=== PATIENT | female | born 1985 | race Caucasian/White ===

== ENCOUNTER 2024-05-12 12:22 | Emergency (ER) | payer MEDICAID, SELFPAY ==
[2024-05-12 12:38] VITALS: BP 133/63; PULSE 85; RESP 16; TEMP 36.7; O2SAT 98; BMI 24.7
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
[2024-05-12 13:16] LABS: Collection Type, Urine Clean Catch
[2024-05-12 13:33] LABS: Strep A Rapid Negative (Negative)
[2024-05-12 13:48] LABS: Bacteria,Urine 4+; Bilirubin,Urine Negative (Negative); Blood,Urine Trace (Negative); Color,Urine Yellow (Lt Yel-Yel); Glucose, Urine Negative (Negative); Ketones,Urine Negative (Negative); Leukocyte Esterase,Urine Positive (Negative); Nitrite,Urine Positive (Negative); PH,Urine 6.5 (5.0-7.0); Protein,Urine Trace (Neg - Trace); RBC,Urine 10 /hpf (0-3); Specific Gravity,Urine 1.023 (1.001-1.035); Squamous Epithelial Cell,Urine 2 /hpf (0-5); Urobilinogen,Urine Negative mg/dL (0.0-1.0); WBC,Urine 68 /hpf (0-5)
[2024-05-12 13:54] LABS: Clarity,Urine Hazy (Clear/Hazy); Culture Indicated,Urine Yes
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
[2024-05-12 15:27] VITALS: BP 124/82; PULSE 75; RESP 18; TEMP 36.7; O2SAT 99
== END 2024-05-12 15:42 | disposition home or self-care (01) ==
PROVIDERS: Nurse Practitioner Family; Emergency Provider Emergency Medicine
DX: N39.0 Urinary tract infection, site not specified (principal); S62.635A Displaced fracture of distal phalanx of left ring finger, initial encounter for closed fracture; T76.21XA Adult sexual abuse, suspected, initial encounter
CPT/HCPCS: 73130; 81001; 87077; 87086; 87186; 87651; 99283